=== PATIENT | female | born 1935 | race Caucasian/White ===

== ENCOUNTER 2019-02-10 09:18 | Inpatient (IN) | payer OTHER, MEDICARE ==
[~2019-02-10] VITALS: Ht 162.6 cm; Wt 81.6 kg
--- NOTE | 2019-02-10 09:27 | NUR ---
RECEIVED PT VIA WHEELCHAIR FR HOME. PT AOX2, C/O N/V, ABD DISCOMFORT AND DISTENTION SINCE 02/08/2019. ALSO REPORTS B/L REDNESS TENDERNESS AND DISCOMFORT ON LOWER LEGS SINCE 02/09/2019. +DIARRHEA >10X FOR THE PAST 24HRS, EMESIS 4X THIS MORNING. OUT OF BALANCE AND DIZZINESS THIS MORNING. WILL MONITOR ACCORDINGLY
[2019-02-10] MEDS ORDERED: ESCI10TA PO (09:35)
[2019-02-10] MEDS ORDERED: POTA10TA15 PO (09:35)
[2019-02-10] MEDS ORDERED: ACET-2605 PO (09:35)
[2019-02-10] MEDS ORDERED: CLON0.1T PO (09:35)
[2019-02-10] MEDS ORDERED: SPIR50TA5 PO (09:35)
[2019-02-10] MEDS ORDERED: PROPRANOLOL (09:35)
[2019-02-10] MEDS ORDERED: IV NORMAL SALINE 500 ML BAG IV ONE (10:00)
[2019-02-10] MEDS ORDERED: PIPERACILLIN SODIUM/TAZOBACTAM 3.375 G in IV DEXTROSE 5% 50 ML IV ONE (10:15)
[2019-02-10] MEDS ORDERED: VANCOMYCIN IV 1,000 MG in IV DEXTROSE 5% 250 ML IV ONE (10:15)
--- NOTE | 2019-02-10 10:36 | NUR ---
MD AT BEDSIDE FOR HX AND PHYSICAL. BP AT 80/65MMhG, RETAKEN : 80/49MMHG; NOTIFIED MD, STARTED IV ORDERED L AC WITH G22 COVERED BUTTON MAKER AT BEDSIDE KEPT WARM DRY AND COMFORTABLE.
[2019-02-10 10:37] LABS: BASOPHILS % (AUTO) 0.3 % (0.0-2.0); EOSINOPHILS # (AUTO) 0.2 K/uL (0.0-0.7); HEMATOCRIT 32.9 % (31.2-41.9); HEMOGLOBIN 10.9 g/dL (10.9-14.3); LYMPHOCYTES # (AUTO) 1.3 K/uL (20.0-40.0); LYMPHOCYTES % (AUTO) 12.1 % (20.5-51.5); MEAN CORPUSCULAR HEMOGLOBIN 34.1 uug (24.7-32.8); MEAN CORPUSCULAR HGB CONC 33 g/dL (32.3-35.6); MEAN CORPUSCULAR VOLUME 102.9 fL (75.5-95.3); MONOCYTES # (AUTO) 0.8 K/uL (2.0-10.0); MONOCYTES % (AUTO) 6.9 % (0.0-11.0); NEUTROPHILS # (AUTO) 8.7 K/uL (1.8-8.9); NEUTROPHILS % (AUTO) 78.7 % (38.5-71.5); PLATELET COUNT (AUTO) 136 K/uL (179-408); WHITE BLOOD COUNT (AUTO) 11.1 K/uL (3.8-11.8)
[2019-02-10] MEDS ORDERED: VANCOMYCIN IV 200 ML ONE (10:49)
[2019-02-10] MEDS ORDERED: PIPERACILLIN/TAZOBACTAM/D5W 50 ML IV ONE (10:50)
[2019-02-10] MEDS ORDERED: ONDANSETRON 4 MG/2 ML VIAL ONE (10:59)
[2019-02-10] MEDS ORDERED: ONDANSETRON IV *ER 4 MG/2 ML VIAL IV ONE (11:00)
--- NOTE | 2019-02-10 11:07 | NUR ---
BACK FROM CT VIA ANJEL, ACCOMPANIED BY LUCAS. IVF INTACT AND INFUSING WELL V/S REASSESSED. MONITORED ACCORDINGLY. +NAUSEA AND CLEAR EMESIS. ABLE TO TOLERATE ANTIEMETIC PER IV. PLACED ON HIGH VELEZ'S POSITION FOR COMFORT. ASP PREC, SAFETY PREC APPLIED. REASSURED, KEPT WARM DRY AND COMFORTABLE.
[2019-02-10 11:22] LABS: CARBON DIOXIDE 21 mmol/L (21-32); CHLORIDE 108 mmol/L (98-107); CREATININE 1.1 mg/dL (0.6-1.3); GLUCOSE 86 mg/dL (74-106); POTASSIUM 3.5 mmol/L (3.5-5.1); UREA NITROGEN, BLOOD 16 mg/dL (7-18)
[2019-02-10 11:36] LABS: ALANINE AMINOTRANSFERASE 29 U/L (14-59); ALKALINE PHOSPHATASE 160 U/L (50-136); ASPARTATE AMINOTRANSFERASE 51 U/L (15-37); BILIRUBIN,DIRECT 2.7 mg/dL (0.0-0.2); BILIRUBIN,TOTAL 5.5 mg/dL (0.2-1.0); LIPASE 74 U/L (73-393); TOTAL PROTEIN, SERUM 6.2 g/dL (6.4-8.2)
[2019-02-10] MEDS ORDERED: METOCLOPRAMIDE HCL 10 MG/2 ML VIAL ONE (12:42)
[2019-02-10] MEDS ORDERED: IV NORMAL SALINE 500 ML IV ONE (12:45)
[2019-02-10] MEDS ORDERED: METOCLOPRAMIDE HCL 10 MG/2 ML VIAL IV ONE (12:45)
--- NOTE | 2019-02-10 13:26 | NUR ---
PT L AC IV SITE SHIFTED TO R DORSAL HAND. HAND OFF GIVEN TO SARAH GARLAND FOR TELE ADMISSION UNDER DR. MOY
--- NOTE | 2019-02-10 13:58 | NUR ---
PT FOR TRANSFER TO TELE ADMISSION VIA BED, ACCOMPANIED BY ANY ELIZALDE. ALL BELONGINGS WITH PATIENT.
--- NOTE | 2019-02-10 14:00 | NUR ---
RECEIVED PATIENT FROM HOME VIA ER, ACCOMPANIED BY FAMILY W/ CC OF N/V SINCE 02/08/19 AND ABDOMINAL PAIN AND CELLULITIS OF BLE. AWAKE, A&OX3, MALTESE SPEAKING. ADMISSION ASSESSMENT INITIATED, SEEN BY DR. MOY W/ ORDERS
[2019-02-10 14:11] VITALS: BP 110/61
[2019-02-10] MEDS ORDERED: ONDANSETRON 4 MG/2 ML VIAL IV PRN (14:45)
[2019-02-10] MEDS ORDERED: MORPHINE SULFATE 2 MG/1 ML DISP.SYRIN IV PRN (14:45)
[2019-02-10] MEDS ORDERED: MAGNESIUM HYDROXIDE 30 ML LIQUID UDC PO PRN (14:45)
[2019-02-10] MEDS ORDERED: Z GUARD REMEDY PASTE 57 GM TUBE TOP PRN (14:45)
[2019-02-10] MEDS ORDERED: ZOLPIDEM 5 MG TABLET PO PRN (14:45)
--- NOTE | 2019-02-10 15:00 | NUR ---
HEMODIALYSIS STARTED Addendum: 02/10/19 at 1609 by ADITYA REAVES RN WRONG ENTRY
[2019-02-10 15:03] VITALS: BP 102/43
--- NOTE | 2019-02-10 15:58 | NUR ---
pharmacy clinical notes ( vancomycin dosing) S: 83 YO female with DX of BLE cellulitis O: BUN/SCR 16/1.1, WBC 11.1, TEMP 98, DOSING WT 180 LBS A/P: PT received 1 dose of Vanco in ER @ 11:30. Also on Rocephine . Will dose Vanco as 1 gm q24h next dose to start tomorrow @ 1200. This would yeild a peak of 32 and trough of 16. Will monitor renal fxn and levels and adjust the dose as necessary.
--- NOTE | 2019-02-10 16:22 | NUR ---
SEEN BY LOG PEELER DR. MOY W/ ADMISSION ORDERS AND TO BE FOLLOWED UP BY DR. BRYANT (GI) AND DR. EPPERSON (CARDIO)
[2019-02-10] MEDS: CEFTRIAXONE 2 G in IV DEXTROSE 5% 100 ML IV SCH (17:16)
--- NOTE | 2019-02-10 19:45 | NUR ---
Received patient awake in bed, alert and oriented x4, ambulatory. Not in any form of distress. Caregiver present at bedside. Note patient has been having diarrhea since admission, stool sample was already sent to lab, will follow up result. Patient instructed to remain on clear liquid intake. Still need to collect urine sample, patient instructed to call nurse if she feels the urge to urinate. Bed in low position, locked, side rails up for safety. will continue to monitor.
[2019-02-10 20:00] VITALS: BP 97/45
[2019-02-11] VITALS (11 sets, daily range): BP systolic 94–127; BP diastolic 43–72
[2019-02-11 00:01] LABS: *BLOOD, URINE 2+ (NEGATIVE); *CLARITY,URINE SLIGHTLY CLOUDY (CLEAR); *COLOR,URINE DARK YELLOW (YELLOW); *KETONES,URINE NEGATIVE (NEGATIVE); *UROBILINOGEN,URINE 0.2 E.U./dl (NORMAL); LEUKOCYTE ESTERASE ,URINE TRACE (NEGATIVE); NITRITE, URINE NEGATIVE (NEGATIVE); UGLUCOSE NEGATIVE (NEGATIVE)
[2019-02-11 00:03] LABS: *BILIRUBIN,URIN 2+ (NEGATIVE)
[2019-02-11 00:35] LABS: BACTERIA,URINE FEW /HPF (NONE SEEN)
[2019-02-11 00:36] LABS: SQUAMOUS EPITHELIAL CELL,UR MANY /HPF (NONE SEEN); URINE AMORPHOUS URATE FEW /HPF
--- NOTE | 2019-02-11 05:51 | NUR ---
Patient slept well throughout the night, no complaints were made. No recurrence of watery stool after midnight, noted need to collect stool sample for further testing will endorse to next shift nurse. Observed contact isolation in relation to possible cdiff infection. Maintain patient on clear liquid diet as ordered. Attended all needs. Ensured safety and comfort.
[2019-02-11 06:41] LABS: BASOPHILS # (AUTO) 0.1 K/uL (0.0-8.0); BASOPHILS % (AUTO) 0.8 % (0.0-2.0); EOSINOPHILS # (AUTO) 0.3 K/uL (0.0-0.7); EOSINOPHILS % (AUTO) 3.9 % (0.0-7.0); HEMATOCRIT 24.7 % (31.2-41.9); HEMOGLOBIN 8.4 g/dL (10.9-14.3); LYMPHOCYTES # (AUTO) 1.2 K/uL (20.0-40.0); LYMPHOCYTES % (AUTO) 15.9 % (20.5-51.5); MEAN CORPUSCULAR HEMOGLOBIN 34.9 uug (24.7-32.8); MEAN CORPUSCULAR HGB CONC 34 g/dL (32.3-35.6); MEAN CORPUSCULAR VOLUME 102.9 fL (75.5-95.3); MONOCYTES # (AUTO) 0.6 K/uL (2.0-10.0); MONOCYTES % (AUTO) 8.9 % (0.0-11.0); NEUTROPHILS # (AUTO) 5.1 K/uL (1.8-8.9); NEUTROPHILS % (AUTO) 70.5 % (38.5-71.5); PLATELET COUNT (AUTO) 75 K/uL (179-408); WHITE BLOOD COUNT (AUTO) 7.3 K/uL (3.8-11.8)
[2019-02-11 06:53] LABS: ALANINE AMINOTRANSFERASE 24 U/L (14-59); ALKALINE PHOSPHATASE 128 U/L (50-136); ASPARTATE AMINOTRANSFERASE 36 U/L (15-37); BILIRUBIN,TOTAL 3.9 mg/dL (0.2-1.0); CARBON DIOXIDE 25 mmol/L (21-32); CHLORIDE 109 mmol/L (98-107); CHOLESTEROL 58 mg/dL (<200); CREATININE 1.2 mg/dL (0.6-1.3); GLUCOSE 101 mg/dL (74-106); HDL CHOLESTEROL 17 mg/dL (40-60); MAGNESIUM 1.8 mg/dL (1.8-2.4); PHOSPHOROUS 3.1 mg/dL (2.5-4.9); POTASSIUM 3.1 mmol/L (3.5-5.1); TOTAL PROTEIN, SERUM 5.1 g/dL (6.4-8.2); TRIGLYCERIDES 44 MG/DL (30-150); UREA NITROGEN, BLOOD 16 mg/dL (7-18)
[2019-02-11 07:45] LABS: EOSINOPHILS % (MANUAL) 2 % (0-8); LYMPHOCYTES % (MANUAL) 7 % (20-40); MONOCYTES % (MANUAL) 4 % (2-10); NEUTROPHILS % (MANUAL) 87 % (42-75)
--- NOTE | 2019-02-11 08:02 | NUR ---
Patient comfortable in bed with no signs of distress. Patient call light with in reach; all safety measures in place
[2019-02-11] MEDS: ESCITALOPRAM OXALATE 10 MG TABLET PO SCH (08:53)
[2019-02-11] MEDS: SPIRONOLACTONE 50 MG TABLET PO SCH (08:54)
[2019-02-11 10:12] LABS: *OCCULT BLOOD STOOL POSITIVE (NEGATIVE)
--- NOTE | 2019-02-11 10:30 | NUR ---
SEEN BY DR Candice MOY EXAMINED PATIENT AND NOTED AM LABS WITH ORDER. SEE NOTES
--- NOTE | 2019-02-11 11:00 | NUR ---
VERIFIED WITH DR Luis MOY REGARDING PLATELET AND PRBC AND SAID TO TRANSFUSE 1 UNIT PLATELET AND 1 UNIT PRBC. CONSENT SIGNED
[2019-02-11] MEDS ORDERED: VANCOMYCIN IV 200 ML IV SCH (12:00)
[2019-02-11] MEDS ORDERED: POTASSIUM CHLORIDE 20 MEQ TAB.PRT.SR PO ONE (13:15)
--- NOTE | 2019-02-11 13:35 | NUR ---
pharmacy clinical notes ( vancomycin dosing) S: 83 YO female with DX of BLE cellulitis O: BUN/SCR 16/1.2, WBC 7.3, TEMP 98.1, DOSING WT 180 LBS A/P: Will continue with Vanco 1 gm q24h for estimated peak of 32 and trough of 16. 2nd dose due today at 1200. Will order trough before 4th scheduled dose (not ordered yet). Will monitor renal fxn and levels and adjust the dose as necessary.
--- NOTE | 2019-02-11 13:39 | NUR ---
Blood transfusion started; patient closely observed.
--- NOTE | 2019-02-11 14:00 | NUR ---
NO SS OF BLOOD TRANSFUSION REACTION NOTED, CONTINUE WITH TX
--- NOTE | 2019-02-11 14:39 | NUR ---
SEEN BY GI WILL CONTINUE TO FOLLOW-UP PATIENT, SEE NOTES
[2019-02-11] MEDS ORDERED: LOPERAMIDE HCL 1 MG/5 ML UDC PO PRN (15:30)
[2019-02-11] MEDS: LOPERAMIDE HCL 2 MG CAPSULE PO PRN (16:02)
--- NOTE | 2019-02-11 17:03 | NUR ---
1 UNIT PRBC COMPLETED WITHOUT REACTION.
[2019-02-11] MEDS: CEFTRIAXONE 2 G in IV DEXTROSE 5% 100 ML IV SCH (17:06)
--- NOTE | 2019-02-11 18:42 | NUR ---
1 unit of platelets started and patient closely observed.
--- NOTE | 2019-02-11 19:06 | NUR ---
No reaction from platelets transfusion, continue with treatment.
--- NOTE | 2019-02-11 20:00 | NUR ---
received pt with ongoing plate transfusion; concluded at this time with VS stable and afebrile; see downtime form for this platelet infusion.
[2019-02-12] VITALS: BP 129/48
[2019-02-12 04:00] VITALS: BP 107/51
[2019-02-12 06:52] LABS: ALANINE AMINOTRANSFERASE 28 U/L (14-59); ALKALINE PHOSPHATASE 146 U/L (50-136); ASPARTATE AMINOTRANSFERASE 39 U/L (15-37); BILIRUBIN,TOTAL 4.5 mg/dL (0.2-1.0); CARBON DIOXIDE 23 mmol/L (21-32); CHLORIDE 108 mmol/L (98-107); CREATININE 1.3 mg/dL (0.6-1.3); GLUCOSE 83 mg/dL (74-106); MAGNESIUM 1.7 mg/dL (1.8-2.4); PHOSPHOROUS 3.2 mg/dL (2.5-4.9); POTASSIUM 3.4 mmol/L (3.5-5.1); TOTAL PROTEIN, SERUM 5.9 g/dL (6.4-8.2); UREA NITROGEN, BLOOD 14 mg/dL (7-18)
[2019-02-12 07:03] LABS: BASOPHILS # (AUTO) 0.1 K/uL (0.0-8.0)
[2019-02-12 07:20] LABS: BASOPHILS % (AUTO) 0.8 % (0.0-2.0); EOSINOPHILS # (AUTO) 0.4 K/uL (0.0-0.7); EOSINOPHILS % (AUTO) 4.6 % (0.0-7.0); LYMPHOCYTES # (AUTO) 1.5 K/uL (20.0-40.0); LYMPHOCYTES % (AUTO) 15.9 % (20.5-51.5); MEAN CORPUSCULAR HEMOGLOBIN 33.8 uug (24.7-32.8); MEAN CORPUSCULAR HGB CONC 34 g/dL (32.3-35.6); MEAN CORPUSCULAR VOLUME 99.3 fL (75.5-95.3); MONOCYTES # (AUTO) 0.8 K/uL (2.0-10.0); MONOCYTES % (AUTO) 8.6 % (0.0-11.0); NEUTROPHILS # (AUTO) 6.5 K/uL (1.8-8.9); NEUTROPHILS % (AUTO) 70.1 % (38.5-71.5); RED BLOOD CELL COUNT(AUTO) 3.23 MIL/uL (3.63-4.92)
[2019-02-12 07:22] LABS: WHITE BLOOD COUNT (AUTO) 9.2 K/uL (3.8-11.8)
[2019-02-12 07:23] LABS: HEMOGLOBIN 10.9 g/dL (10.9-14.3); PLATELET COUNT (AUTO) 102 K/uL (179-408)
--- NOTE | 2019-02-12 07:26 | NUR ---
Patient rested well in between care; no acute distress; family at bedside; needs attended.
[2019-02-12] MEDS: SPIRONOLACTONE 50 MG TABLET PO SCH (08:06)
[2019-02-12] MEDS: ESCITALOPRAM OXALATE 10 MG TABLET PO SCH (08:06)
[2019-02-12 11:31] VITALS: BP 117/63
[2019-02-12] MEDS: ALBUMIN HUMAN 25% 25 GM in PREMIXED 1 EACH IV PRN ×2 (13:42→16:56)
--- NOTE | 2019-02-12 13:56 | NUR ---
pharmacy clinical notes ( vancomycin dosing) S: 83 YO female with DX of BLE cellulitis O: BUN/SCR 14/1.3 (previously 1.2, 1.1), WBC 9.2, TEMP 98, DOSING WT 180 LBS A/P: As renal function has changed, rescheduled regimen from 1gm q24h to 1gm q30h for new estimated trough of 15.4, second dose today at 1700. Will follow renal function and if continues to decrease, consider dosing per levels instead. Otherwise, will check torugh before 4th scheduled dose (not ordered yet). Will follow
[2019-02-12] MEDS ORDERED: POTASSIUM CHLORIDE 20 MEQ TAB.PRT.SR PO ONE (14:00)
[2019-02-12 15:55] VITALS: BP 113/57
[2019-02-12] MEDS: VANCOMYCIN IV 1 G in PREMIXED 0 EACH IV SCH (16:19)
[2019-02-12] MEDS: CEFTRIAXONE 2 G in IV DEXTROSE 5% 100 ML IV SCH (17:45)
[2019-02-12] MEDS: MAGNESIUM SULFATE/D5W 100 ML IV SCH ×2 (18:38→19:29)
[2019-02-12 20:41] VITALS: BP 131/53
[2019-02-13 00:33] VITALS: BP 108/42
[2019-02-13 05:12] VITALS: BP 105/49
--- NOTE | 2019-02-13 05:13 | NUR ---
Patient rested well in between care; assisted to meet hygiene needs; family at bedside; no acute distress; safety maintained continue to monitor; continue plan of care
[2019-02-13 06:40] LABS: BASOPHILS # (AUTO) 0.1 K/uL (0.0-8.0); BASOPHILS % (AUTO) 1.2 % (0.0-2.0); EOSINOPHILS # (AUTO) 0.3 K/uL (0.0-0.7); EOSINOPHILS % (AUTO) 5.7 % (0.0-7.0); HEMATOCRIT 26.9 % (31.2-41.9); HEMOGLOBIN 9.2 g/dL (10.9-14.3); LYMPHOCYTES % (AUTO) 17.7 % (20.5-51.5); MEAN CORPUSCULAR HEMOGLOBIN 34.3 uug (24.7-32.8); MEAN CORPUSCULAR HGB CONC 34 g/dL (32.3-35.6); MEAN CORPUSCULAR VOLUME 99.8 fL (75.5-95.3); MONOCYTES # (AUTO) 0.6 K/uL (2.0-10.0); MONOCYTES % (AUTO) 11.2 % (0.0-11.0); NEUTROPHILS # (AUTO) 3.7 K/uL (1.8-8.9); NEUTROPHILS % (AUTO) 64.2 % (38.5-71.5); PLATELET COUNT (AUTO) 77 K/uL (179-408); RED BLOOD CELL COUNT(AUTO) 2.69 MIL/uL (3.63-4.92); WHITE BLOOD COUNT (AUTO) 5.7 K/uL (3.8-11.8)
[2019-02-13 06:58] LABS: ALANINE AMINOTRANSFERASE 20 U/L (14-59); ALKALINE PHOSPHATASE 106 U/L (50-136); ASPARTATE AMINOTRANSFERASE 27 U/L (15-37); BILIRUBIN,TOTAL 3.7 mg/dL (0.2-1.0); CARBON DIOXIDE 21 mmol/L (21-32); CHLORIDE 109 mmol/L (98-107); CREATININE 1.2 mg/dL (0.6-1.3); GLUCOSE 88 mg/dL (74-106); PHOSPHOROUS 3.4 mg/dL (2.5-4.9); POTASSIUM 3.3 mmol/L (3.5-5.1); TOTAL PROTEIN, SERUM 5.2 g/dL (6.4-8.2); UREA NITROGEN, BLOOD 12 mg/dL (7-18)
--- NOTE | 2019-02-13 08:00 | NUR ---
abdomen obese, prn leaking from paracentesis site. gauge applied for comfort
--- NOTE | 2019-02-13 08:00 | NUR ---
RECEIVED PATIENT ON BED, AWAKE, DENIES DISCOMFORT. DAUGHTER AT BEDSIDE, SUPPORTIVE OF PATIENT CARE.
[2019-02-13] MEDS: SPIRONOLACTONE 50 MG TABLET PO SCH (08:44)
[2019-02-13] MEDS: ESCITALOPRAM OXALATE 10 MG TABLET PO SCH (08:44)
[2019-02-13] MEDS: POTASSIUM CHLORIDE 50 ML IV SCH ×4 (09:41→14:07)
--- NOTE | 2019-02-13 09:45 | NUR ---
MED FOR K SUPPLEMENT. DAUGHTER AND PATIETN AWARE IVPB X 4 ORDERED. VERBALIZED UNDERSTANDING.
--- NOTE | 2019-02-13 10:45 | NUR ---
DAUGHTER CEM LEFT FOR NOW. WILL VISIT LATER.
[2019-02-13 11:02] VITALS: BP 106/50
--- NOTE | 2019-02-13 14:30 | NUR ---
Pharmacy clinical notes ( vancomycin dosing) S: 83 YO female with DX of BLE cellulitis O: BUN/SCR 12/1.2, WBC 5.7, TEMP 98.4 DOSING WT 180 LBS A/P: Will continue 1gm q30h for new estimated trough of 15.4, third dose tonight at 2300. Will follow renal function and if continues to decrease, consider dosing per levels instead. Otherwise, will check through before 4th scheduled dose (not ordered yet). Will follow.
--- NOTE | 2019-02-13 14:38 | NUR ---
seen by dr Bartlett, made order and carried out
[2019-02-13 15:30] VITALS: BP 103/53
[2019-02-13] MEDS: CEFTRIAXONE 2 G in IV DEXTROSE 5% 100 ML IV SCH (17:21)
--- NOTE | 2019-02-13 18:00 | NUR ---
full liquid diet, tolerated well. advanced to soft diet in am
--- NOTE | 2019-02-13 19:45 | NUR ---
PATIENT ALERT SPEAK GIBRALTARIAN, DAUGHTER AT BEDSIDE TO INTERPRET FOR THE PATIENT. NO SOB NO CHEST PAIN, TELE MONITOR SINUS RHYTHM AT THIS TIME. NO COMPLAIN OF PAIN. CONT TO MONITOR.
[2019-02-13 19:58] VITALS: BP 101/60
[2019-02-13] MEDS: VANCOMYCIN IV 1 G in PREMIXED 0 EACH IV SCH (23:48)
[2019-02-14 00:39] VITALS: BP 104/53
[2019-02-14 04:27] VITALS: BP 90/50
--- NOTE | 2019-02-14 06:13 | NUR ---
PATIENT ALERT, NO SOB NO CHEST PAIN, TELE MONITOR SINUS RHYTHM AT THIS TIME. ASSISTED WITH TOILETING. BILATERAL LEGS CELLULITIS STILL HAS REDNESS AND SWELLING NOTED. FAMILY AT BEDSIDE. CONT TO MONITOR.
[2019-02-14 06:56] LABS: BASOPHILS # (AUTO) 0.1 K/uL (0.0-8.0); BASOPHILS % (AUTO) 0.8 % (0.0-2.0); EOSINOPHILS # (AUTO) 0.4 K/uL (0.0-0.7); HEMATOCRIT 30.2 % (31.2-41.9); HEMOGLOBIN 10.3 g/dL (10.9-14.3); LYMPHOCYTES # (AUTO) 1.2 K/uL (20.0-40.0); LYMPHOCYTES % (AUTO) 15.7 % (20.5-51.5); MEAN CORPUSCULAR HEMOGLOBIN 34.1 uug (24.7-32.8); MEAN CORPUSCULAR HGB CONC 34 g/dL (32.3-35.6); MEAN CORPUSCULAR VOLUME 100.2 fL (75.5-95.3); MONOCYTES # (AUTO) 0.9 K/uL (2.0-10.0); NEUTROPHILS # (AUTO) 5.1 K/uL (1.8-8.9); NEUTROPHILS % (AUTO) 66.5 % (38.5-71.5); PLATELET COUNT (AUTO) 98 K/uL (179-408); RED BLOOD CELL COUNT(AUTO) 3.02 MIL/uL (3.63-4.92); WHITE BLOOD COUNT (AUTO) 7.7 K/uL (3.8-11.8)
[2019-02-14 07:08] LABS: ALANINE AMINOTRANSFERASE 24 U/L (14-59); ALKALINE PHOSPHATASE 120 U/L (50-136); ASPARTATE AMINOTRANSFERASE 30 U/L (15-37); BILIRUBIN,TOTAL 3.7 mg/dL (0.2-1.0); CARBON DIOXIDE 22 mmol/L (21-32); CHLORIDE 109 mmol/L (98-107); CREATININE 1.2 mg/dL (0.6-1.3); GLUCOSE 97 mg/dL (74-106); POTASSIUM 3.8 mmol/L (3.5-5.1); TOTAL PROTEIN, SERUM 5.7 g/dL (6.4-8.2); UREA NITROGEN, BLOOD 11 mg/dL (7-18)
--- NOTE | 2019-02-14 07:25 | NUR ---
RECEIVED PATIENT IN BED ON ROOM AIR WITH NO SHORTNESS OF BREATH NO S/S OF PAIN OR DISCOMFORTS AT THIS TIME LANGUAGE BARRIER SPEAKS MOSTLY KENYAN ASSIGNED BACK STAYER ALSO SPEAKS KENYAN ALL NEEDS ANTICIPATED AND SATISFIED MADE COMFORTABLE WILL CONTINUE TO OBSERVE.
[2019-02-14 08:02] LABS: EOSINOPHILS % (MANUAL) 6 % (0-8); LYMPHOCYTES % (MANUAL) 5 % (20-40); MONOCYTES % (MANUAL) 8 % (2-10); NEUTROPHILS % (MANUAL) 81 % (42-75)
[2019-02-14] MEDS: SPIRONOLACTONE 50 MG TABLET PO SCH (08:23)
[2019-02-14] MEDS: ESCITALOPRAM OXALATE 10 MG TABLET PO SCH (08:23)
--- NOTE | 2019-02-14 10:17 | NUR ---
Pharmacy clinical notes ( vancomycin dosing) S: To continue vanco dosing for this 83 YO female patient for BLE cellulitis O: BUN/SCR 11.2, WBC 7.7, TEMP 98.5 wt 81.6 kg ht 162 cm A/P: Will continue 1gm q30h for today. Will check through before 4th scheduled dose (ordered for 02/15 at 0430am- RN has been informed to hold 0500 am dose if vanco trough level is above 20 mcg/ml). Pharmacy shall review the level in am & adjust the dose if needed. Will follow.
[2019-02-14] MEDS: LOPERAMIDE HCL 2 MG CAPSULE PO PRN (10:18)
--- NOTE | 2019-02-14 10:18 | NUR ---
NOTED PATIENT HAD DIARRHEA LARGE AMOUNTS ALL OVER THE FLOOR BED AND DIAPER MEDICATED WITH IMMODIUM ORDERED CLEANSED ASSISTED BACK INTO THE BED AND MADE COMFORTABLE.
[2019-02-14 11:30] VITALS: BP 106/67
[2019-02-14 15:39] VITALS: BP 107/63
[2019-02-14] MEDS: CEFTRIAXONE 2 G in IV DEXTROSE 5% 100 ML IV SCH (17:03)
--- NOTE | 2019-02-14 17:57 | NUR ---
PATIENT SEEN AND EXAMINED BY JOSEPH HOLCOMB WITH NEW ORDERS AND NOTED.NO FUTHER EPISODES OF DIARRHEA
[2019-02-14 19:58] VITALS: BP 113/55
[2019-02-14] MEDS: FAMOTIDINE 20 MG TABLET PO SCH (20:00)
--- NOTE | 2019-02-14 20:15 | NUR ---
Received pt resting in bed. No acute distress noted. Togolese speaking. Family at bedside. No diarrhea noted at this time. Safety measures maintained. Call light and personal belongings within reach. Will continue to monitor.
[2019-02-15 00:54] VITALS: BP 107/52
[2019-02-15 04:41] VITALS: BP 97/54
[2019-02-15 05:00] LABS: CARBON DIOXIDE 24 mmol/L (21-32); CHLORIDE 109 mmol/L (98-107); CREATININE 1.2 mg/dL (0.6-1.3); GLUCOSE 86 mg/dL (74-106); MAGNESIUM 1.8 mg/dL (1.8-2.4); UREA NITROGEN, BLOOD 11 mg/dL (7-18)
[2019-02-15] MEDS: VANCOMYCIN IV 1 G in PREMIXED 0 EACH IV SCH (05:32)
[2019-02-15 05:53] LABS: BASOPHILS # (AUTO) 0.1 K/uL (0.0-8.0); BASOPHILS % (AUTO) 1.1 % (0.0-2.0); EOSINOPHILS # (AUTO) 0.4 K/uL (0.0-0.7); EOSINOPHILS % (AUTO) 6.2 % (0.0-7.0); HEMATOCRIT 29.2 % (31.2-41.9); LYMPHOCYTES # (AUTO) 0.7 K/uL (20.0-40.0); LYMPHOCYTES % (AUTO) 12.4 % (20.5-51.5); MEAN CORPUSCULAR HEMOGLOBIN 34.3 uug (24.7-32.8); MEAN CORPUSCULAR HGB CONC 34 g/dL (32.3-35.6); MEAN CORPUSCULAR VOLUME 100.4 fL (75.5-95.3); MONOCYTES # (AUTO) 0.7 K/uL (2.0-10.0); MONOCYTES % (AUTO) 11.7 % (0.0-11.0); NEUTROPHILS # (AUTO) 3.9 K/uL (1.8-8.9); NEUTROPHILS % (AUTO) 68.6 % (38.5-71.5); WHITE BLOOD COUNT (AUTO) 5.7 K/uL (3.8-11.8)
[2019-02-15 06:22] LABS: EOSINOPHILS % (MANUAL) 3 % (0-8); LYMPHOCYTES % (MANUAL) 10 % (20-40); MONOCYTES % (MANUAL) 10 % (2-10); NEUTROPHILS % (MANUAL) 77 % (42-75)
[2019-02-15 06:24] LABS: PLATELET COUNT (AUTO) 81 K/uL (179-408)
--- NOTE | 2019-02-15 07:19 | NUR ---
RECEIVED PATIENT AWAKE ALERT AND AWARE WITH LANGUGE BARRIER BUT HAS A FAMILY MEMBER IN THE ROOM ASSISITING WITH TRANSLATING HER NEEDS DENIES PAIN OR DISCOMFORTS PATIENT INSTRUCTED TO ATTEMPT TO ELEVATED BOTH LEGS WHEN EVER POSSIBLE TO DECREASE SWELLING REDNESS STILL EVIDENT MADE COMFORTABLE WILL CONTINUE TO OBSERVE.
[2019-02-15] MEDS: FAMOTIDINE 20 MG TABLET PO SCH (08:46)
[2019-02-15] MEDS: ESCITALOPRAM OXALATE 10 MG TABLET PO SCH (08:46)
[2019-02-15] MEDS: SPIRONOLACTONE 50 MG TABLET PO SCH (08:47)
[2019-02-15] MEDS ORDERED: FUROSEMIDE 20 MG TABLET PO SCH (09:00)
--- NOTE | 2019-02-15 10:07 | NUR ---
Pharmacy clinical notes ( vancomycin dosing) S: To continue vanco dosing for this 83 YO female patient for BLE cellulitis O: BUN/SCR 11.2, WBC 5.7, TEMP 97.7 Vanco trough level: 15 (on 02/15 at 0430) wt 81.6 kg ht 162 cm A/P: Since vanco trough level is 15 mcg/ml,will continue same dose of vanco 1gm IVPB q30h. Will monitor renal function & adjust the dose if needed. Will follow.
[2019-02-15 11:28] VITALS: BP 97/53
[2019-02-15] MEDS ORDERED: OMEP20TA20 PO (11:38)
[2019-02-15] MEDS ORDERED: FURO20TA4 PO (11:38)
[2019-02-15] MEDS ORDERED: LOPE2CAP40 PO (11:38)
[2019-02-15] MEDS ORDERED: CLIN300C11 PO (11:38)
--- NOTE | 2019-02-15 13:11 | NUR ---
PATIENT IS FOR DISCHARGE TODAY CALLED [facility]ILPA PATIENTS DAUGHTER TO INFORM HER RE NAIL SPECIALIST LEFT A MESSAGE AWAITING FOR RETURN CALL.
--- NOTE | 2019-02-15 15:00 | NUR ---
PATIENT DISCHARGED PICKED UP BY HER GRAND DAUGHTER SAAD IN SATISFACTORY CONDITION WITH DISCHARGE INSTRUCTIONS AND PRESCRIPTIONS AND SAAD INSTRUCTED TO CALL ELVA VASQUEZ FOR A FOLLOW UP APPOINTMENT PHONE NUMBER AND INFO PROVIDED HEP LOCK REMOVED AND PATIENT WHEELED DOWN BY W/CHAIR.
== END 2019-02-15 15:00 | disposition home or self-care (01) | DRG 720 ==
LOC: ER 09:18 → TELE3 13:40
PROVIDERS: ADMIT Hospitalist; ATTEND Hospitalist
PROC: 30233N1 Transfusion of Nonautologous Red Blood Cells into Peripheral Vein, Percutaneous Approach (ICD-10-PCS; principal; 2019-02-10)
PROC: 30233R1 Transfusion of Nonautologous Platelets into Peripheral Vein, Percutaneous Approach (ICD-10-PCS; 2019-02-11)
PROC: 0W9G3ZZ Drainage of Peritoneal Cavity, Percutaneous Approach (ICD-10-PCS; 2019-02-12)
DX: A41.9 Sepsis, unspecified organism (principal); L03.115 Cellulitis of right lower limb; E43 Unspecified severe protein-calorie malnutrition; E87.2 Acidosis; D68.4 Acquired coagulation factor deficiency; D69.59 Other secondary thrombocytopenia; I95.9 Hypotension, unspecified; E83.42 Hypomagnesemia; K76.6 Portal hypertension; I08.3 Combined rheumatic disorders of mitral, aortic and tricuspid valves; R65.20 Severe sepsis without septic shock; C22.0 Liver cell carcinoma; K92.2 Gastrointestinal hemorrhage, unspecified; R18.8 Other ascites; K44.9 Diaphragmatic hernia without obstruction or gangrene; K74.60 Unspecified cirrhosis of liver; L03.116 Cellulitis of left lower limb; K80.20 Calculus of gallbladder without cholecystitis without obstruction; Z86.73 Personal history of transient ischemic attack (TIA), and cerebral infarction without residual deficits; Z90.710 Acquired absence of both cervix and uterus; M85.80 Other specified disorders of bone density and structure, unspecified site; E87.6 Hypokalemia; R19.7 Diarrhea, unspecified; I11.9 Hypertensive heart disease without heart failure; J98.11 Atelectasis; I70.0 Atherosclerosis of aorta; R16.1 Splenomegaly, not elsewhere classified; R19.5 Other fecal abnormalities; F32.9 Major depressive disorder, single episode, unspecified; Z79.899 Other long term (current) drug therapy; I49.1 Atrial premature depolarization
CPT/HCPCS: 36415; 70030-TC; 71045; 82105; 83605; 83690; 83735; 84100; 85025; 85730; 86625; 86850; 86900; 86901; 86920; 87040; 87046; 87086; 87177; 89055; 93005; 93307; 97110; 97116; 97530; A4663; G0378; J0696; J2405; J2543; J2765; J3370; J3475; J3480; J7040; J7050; J7060; P9016-BL; P9021; P9035-BL; P9047

== ENCOUNTER 2019-03-24 23:37 | Inpatient (IN) | payer OTHER, MEDICARE ==
[~2019-03-24] VITALS: Ht 167.6 cm; Wt 69.4 kg
[~2019-03-24 23:37] MED LIST: ACET-2605 PO; CLIN300C11 PO; ESCI10TA PO; FURO20TA4 PO; LOPE2CAP40 PO; OMEP20TA20 PO; POTA10TA15 PO; SPIR50TA5 PO
--- NOTE | 2019-03-25 | NUR ---
PATIENT BIB PRIVATE [facility] FROM HOME FOR NAUSE/VOMITING X 2 DAYS. PATIENT IS BULGARIAN SPEAKING ONLY, FAMILY AT [facility].
[2019-03-25 00:22] LABS: BASOPHILS # (AUTO) 0.1 K/uL (0.0-8.0); BASOPHILS % (AUTO) 0.7 % (0.0-2.0); EOSINOPHILS # (AUTO) 0.2 K/uL (0.0-0.7); EOSINOPHILS % (AUTO) 2.2 % (0.0-7.0); HEMATOCRIT 28.9 % (31.2-41.9); HEMOGLOBIN 9.9 g/dL (10.9-14.3); LYMPHOCYTES # (AUTO) 1.3 K/uL (20.0-40.0); LYMPHOCYTES % (AUTO) 14.1 % (20.5-51.5); MEAN CORPUSCULAR HEMOGLOBIN 36.6 uug (24.7-32.8); MEAN CORPUSCULAR HGB CONC 34 g/dL (32.3-35.6); MEAN CORPUSCULAR VOLUME 107.3 fL (75.5-95.3); MONOCYTES # (AUTO) 0.8 K/uL (2.0-10.0); MONOCYTES % (AUTO) 8.7 % (0.0-11.0); NEUTROPHILS % (AUTO) 74.3 % (38.5-71.5); PLATELET COUNT (AUTO) 129 K/uL (179-408); WHITE BLOOD COUNT (AUTO) 9.4 K/uL (3.8-11.8)
[2019-03-25] MEDS ORDERED: PROP10TA10 PO (00:30)
[2019-03-25] MEDS ORDERED: POTA10CA43 PO (00:31)
[2019-03-25 00:40] LABS: CARBON DIOXIDE 21 mmol/L (21-32); CHLORIDE 112 mmol/L (98-107); CREATININE 1.5 mg/dL (0.6-1.3); GLUCOSE 112 mg/dL (74-106); POTASSIUM 5.2 mmol/L (3.5-5.1); UREA NITROGEN, BLOOD 36 mg/dL (7-18)
[2019-03-25 00:44] LABS: THYROID STIMULATING HORMONE 7.582 mIU/mL (0.358-3.740)
[2019-03-25 00:47] LABS: ALANINE AMINOTRANSFERASE 27 U/L (14-59); ALKALINE PHOSPHATASE 129 U/L (50-136); ASPARTATE AMINOTRANSFERASE 36 U/L (15-37); BILIRUBIN,TOTAL 7.6 mg/dL (0.2-1.0); LIPASE 132 U/L (73-393); TOTAL PROTEIN, SERUM 6.5 g/dL (6.4-8.2)
--- NOTE | 2019-03-25 01:20 | NUR ---
DR. PRADO AT BEDSIDE FOR MSE.
[2019-03-25] MEDS ORDERED: ONDANSETRON 4 MG/2 ML VIAL IV ONE (02:00)
[2019-03-25] MEDS ORDERED: ONDANSETRON 4 MG/2 ML VIAL ONE (02:03)
--- NOTE | 2019-03-25 02:07 | NUR ---
Kari THOMAS N.P. REBAR FABRICATOR.
--- NOTE | 2019-03-25 02:10 | NUR ---
ANTONY Loredo SPEAKING WITH DR. PRADO AT THIST TIME.
[2019-03-25] MEDS ORDERED: LACTULOSE 20 G/30 ML LIQUID UDC ONE (02:24)
[2019-03-25] MEDS ORDERED: LACTULOSE 20 G/30 ML LIQUID UDC PO ONE ×3 (02:30→09:00)
--- NOTE | 2019-03-25 02:35 | NUR ---
patient is on the floor, arrived on a gurney, oriented to person only. will begin admission.
--- NOTE | 2019-03-25 02:44 | NUR ---
Pt. admitted to [facility] , under care of Kari HARDY N.P. Belongs List completed
[2019-03-25] MEDS ORDERED: MORPHINE SULFATE 2 MG/1 ML DISP.SYRIN IV PRN (02:45)
[2019-03-25] MEDS ORDERED: ACETAMINOPHEN 325 MG TABLET PO PRN (02:45)
[2019-03-25] MEDS ORDERED: Z GUARD REMEDY PASTE 57 GM TUBE TOP PRN (02:45)
[2019-03-25] MEDS ORDERED: TEMAZEPAM 15 MG CAPSULE PO PRN (02:45)
[2019-03-25] MEDS ORDERED: ALBUTEROL SULFATE 2.5 MG/3 ML NEBU NEB PRN (02:45)
[2019-03-25] MEDS ORDERED: ONDANSETRON 4 MG/2 ML VIAL IV PRN (02:45)
[2019-03-25] MEDS ORDERED: HYDROCODONE/APAP 5-325MG TABLET PO PRN (02:45)
[2019-03-25] MEDS ORDERED: MAGNESIUM HYDROXIDE 30 ML LIQUID UDC PO PRN (02:45)
[2019-03-25] MEDS ORDERED: SODIUM POLYSTYRENE SULFONATE 15 G/60 ML LIQUID UDC PO ONE ×2 (02:45→04:30)
[2019-03-25 03:05] VITALS: BP 108/62
--- NOTE | 2019-03-25 03:43 | NUR ---
Spoke with admitting DOPER Precious, ordered to cancel strict I&O, 40g lactulose, order 20g lactulose for AM. Kayexalate is not available, requested from housed rubber stamps and dies supervisor, rescheduled by the pharmacy for 0430. patient is asleep, daughter is at bedside.
[2019-03-25 04:39] LABS: *BILIRUBIN,URIN 1+ (NEGATIVE); *CLARITY,URINE SLIGHTLY CLOUDY (CLEAR); *COLOR,URINE YELLOW (YELLOW); *KETONES,URINE NEGATIVE (NEGATIVE); LEUKOCYTE ESTERASE ,URINE 1+ (NEGATIVE); NITRITE, URINE NEGATIVE (NEGATIVE); PH,URINE 5.5 (5.0-8.0); UGLUCOSE NEGATIVE (NEGATIVE)
[2019-03-25 04:58] LABS: *BLOOD, URINE TRACE (NEGATIVE)
[2019-03-25 05:03] LABS: BACTERIA,URINE FEW /HPF (NONE SEEN); SQUAMOUS EPITHELIAL CELL,UR MODERATE /HPF (NONE SEEN)
[2019-03-25 05:17] VITALS: BP 102/49
[2019-03-25 06:34] LABS: ALANINE AMINOTRANSFERASE 25 U/L (14-59); ALKALINE PHOSPHATASE 123 U/L (50-136); ASPARTATE AMINOTRANSFERASE 30 U/L (15-37); BILIRUBIN,TOTAL 7.5 mg/dL (0.2-1.0); CARBON DIOXIDE 22 mmol/L (21-32); CHLORIDE 114 mmol/L (98-107); CHOLESTEROL 66 mg/dL (<200); CREATININE 1.6 mg/dL (0.6-1.3); GLUCOSE 113 mg/dL (74-106); HDL CHOLESTEROL 12 mg/dL (40-60); MAGNESIUM 1.9 mg/dL (1.8-2.4); PHOSPHOROUS 3.3 mg/dL (2.5-4.9); POTASSIUM 5.8 mmol/L (3.5-5.1); TRIGLYCERIDES 57 MG/DL (30-150); UREA NITROGEN, BLOOD 39 mg/dL (7-18)
[2019-03-25 06:45] LABS: BASOPHILS # (AUTO) 0.1 K/uL (0.0-8.0); BASOPHILS % (AUTO) 0.6 % (0.0-2.0); EOSINOPHILS # (AUTO) 0.2 K/uL (0.0-0.7); HEMATOCRIT 27.1 % (31.2-41.9); HEMOGLOBIN 9.5 g/dL (10.9-14.3); LYMPHOCYTES # (AUTO) 1.2 K/uL (20.0-40.0); LYMPHOCYTES % (AUTO) 14.4 % (20.5-51.5); MEAN CORPUSCULAR HEMOGLOBIN 37.1 uug (24.7-32.8); MEAN CORPUSCULAR HGB CONC 35 g/dL (32.3-35.6); MEAN CORPUSCULAR VOLUME 105.4 fL (75.5-95.3); MONOCYTES # (AUTO) 0.7 K/uL (2.0-10.0); MONOCYTES % (AUTO) 8.6 % (0.0-11.0); NEUTROPHILS # (AUTO) 6.3 K/uL (1.8-8.9); NEUTROPHILS % (AUTO) 74.4 % (38.5-71.5); PLATELET COUNT (AUTO) 115 K/uL (179-408); RED BLOOD CELL COUNT(AUTO) 2.57 MIL/uL (3.63-4.92); WHITE BLOOD COUNT (AUTO) 8.4 K/uL (3.8-11.8)
[2019-03-25] MEDS ORDERED: PANTOPRAZOLE SODIUM 40 MG TABLET.DR PO SCH (07:00)
--- NOTE | 2019-03-25 07:21 | NUR ---
patient is unable to take her AM Protonix d/t AMS and high risk for aspiration. For safety reasons swallow eval has to be done to see if PO meds are safe to give.
--- NOTE | 2019-03-25 07:35 | NUR ---
RECVEIVED PT RESTING IN BED. NO SOB OR ACUTE DISTRESS NOTED. DAUGHTER AT BEDSIDE. PT ASLEEP. PT ON TELEMETRY MONITORING. SINUS RHYTHM. WILL CONTINUE TO MONITOR. WILL CONTINUE PLAN OF CARE.
[2019-03-25] MEDS: ESCITALOPRAM OXALATE 10 MG TABLET PO SCH (08:54)
[2019-03-25] MEDS: PROPRANOLOL HCL 10 MG TABLET PO SCH ×2 (08:54→17:00)
[2019-03-25] MEDS ORDERED: SPIRONOLACTONE 50 MG TABLET PO SCH (09:00)
[2019-03-25 11:00] VITALS: BP 121/59
--- NOTE | 2019-03-25 12:35 | NUR ---
PT RESTING IN BED. PT ASSISTED WITH REPOSITION EVERY 2 HOURS. DC AC IV 20 HEPLOCK DUE TO DISLODGEMENT CATHETER INTACT. IV HEPLOCK 22 GAUGE LEFT HAND PLACED PATENT AND FLUSHED. PT ABLE TO INGEST PO MEDS WITH APPLE SAUCE. SINUS RHYTHM. WILL CONTINUE TO MONITOR.
--- NOTE | 2019-03-25 13:00 | NUR ---
Spoke to [facility]. Need consent signed, time out sheet, pt,ptt,inr labs for tmrw. will do paracentesis tmrw afternoon.
[2019-03-25] MEDS: LACTULOSE 20 G/30 ML LIQUID UDC PO SCH ×3 (14:47→21:04)
[2019-03-25 15:08] VITALS: BP 110/62
--- NOTE | 2019-03-25 18:00 | NUR ---
PT RESTING COMFORTABLY. NO SOB OR ACUTE DISTRESS NOTED. AWAITING FOR DAUGHTER TO SIGN CONSENT FORM FOR PARACENTESIS ON 03/30/19. PT ON SINUS RHYTHM. [facility]. WILL GIVE REPORT ACCORDINGLY.
[2019-03-25 20:46] VITALS: BP 99/48
--- NOTE | 2019-03-25 21:00 | NUR ---
patient is more alert, communicative and able to cooperate with care. family is at bedside. Consent for paracentesis was signed. IV is patent.
[2019-03-25] MEDS: RIFAXIMIN 550 MG TABLET PO SCH (21:04)
[2019-03-25] MEDS: DOCUSATE SODIUM 100 MG CAPSULE PO SCH (21:04)
[2019-03-26 00:27] VITALS: BP 90/42
[2019-03-26 04:00] VITALS: BP 90/52
[2019-03-26] MEDS: LACTULOSE 20 G/30 ML LIQUID UDC PO SCH ×4 (06:37→21:06)
[2019-03-26 06:48] LABS: BASOPHILS % (AUTO) 0.5 % (0.0-2.0); EOSINOPHILS # (AUTO) 0.2 K/uL (0.0-0.7); EOSINOPHILS % (AUTO) 2.2 % (0.0-7.0); HEMATOCRIT 25.2 % (31.2-41.9); HEMOGLOBIN 8.8 g/dL (10.9-14.3); LYMPHOCYTES # (AUTO) 1.3 K/uL (20.0-40.0); LYMPHOCYTES % (AUTO) 13.8 % (20.5-51.5); MEAN CORPUSCULAR HGB CONC 35 g/dL (32.3-35.6); MONOCYTES # (AUTO) 0.9 K/uL (2.0-10.0); MONOCYTES % (AUTO) 9.7 % (0.0-11.0); NEUTROPHILS # (AUTO) 6.8 K/uL (1.8-8.9); NEUTROPHILS % (AUTO) 73.8 % (38.5-71.5); PLATELET COUNT (AUTO) 108 K/uL (179-408); WHITE BLOOD COUNT (AUTO) 9.2 K/uL (3.8-11.8)
[2019-03-26 06:58] LABS: ALANINE AMINOTRANSFERASE 21 U/L (14-59); ALKALINE PHOSPHATASE 111 U/L (50-136); ASPARTATE AMINOTRANSFERASE 30 U/L (15-37); BILIRUBIN,TOTAL 7.9 mg/dL (0.2-1.0); CARBON DIOXIDE 22 mmol/L (21-32); CHLORIDE 116 mmol/L (98-107); CREATININE 1.6 mg/dL (0.6-1.3); GLUCOSE 93 mg/dL (74-106); MAGNESIUM 1.8 mg/dL (1.8-2.4); PHOSPHOROUS 3.5 mg/dL (2.5-4.9); POTASSIUM 4.9 mmol/L (3.5-5.1); TOTAL PROTEIN, SERUM 5.8 g/dL (6.4-8.2); UREA NITROGEN, BLOOD 36 mg/dL (7-18)
[2019-03-26 07:14] LABS: RED BLOOD CELL COUNT(AUTO) 2.33 MIL/uL (3.63-4.92)
[2019-03-26 07:15] LABS: MEAN CORPUSCULAR VOLUME 108.5 fL (75.5-95.3)
--- NOTE | 2019-03-26 07:25 | NUR ---
RECEIVED PT RESTING IN BED. SIDE RAILS UP X2. BED IN LOWEST POSITION. CALL LIGHT WITHIN REACH. NO SIGNS OF SOB, PAIN OR ACUTE DISTRESS NOTED. CONSENT SIGNED BY FAMILY MEMBER. WILL CONTINUE TO MONITOR. WILL CONTINUE PLAN OF CARE.
[2019-03-26] MEDS: PANTOPRAZOLE ORAL SUSPENSION 40 MG SUSPDR.PKT PO SCH ×2 (07:30→08:42)
[2019-03-26 08:22] VITALS: BP 121/57
[2019-03-26] MEDS: ESCITALOPRAM OXALATE 10 MG TABLET PO SCH (08:58)
[2019-03-26] MEDS: PROPRANOLOL HCL 10 MG TABLET PO SCH ×2 (09:00→17:00)
[2019-03-26] MEDS: RIFAXIMIN 550 MG TABLET PO SCH ×2 (09:05→20:29)
--- NOTE | 2019-03-26 09:52 | NUR ---
ORAL PROTONIX 0730 ADMINISTERED AT 0842
--- NOTE | 2019-03-26 10:06 | NUR ---
LACTULOSE NOT ADMINISTERED AT 0900 DOSE WAS GIVEN AT 0815.
[2019-03-26 11:09] VITALS: BP 111/59
--- NOTE | 2019-03-26 12:00 | NUR ---
PT APPEARS MORE AWARE WITH IMPROVED COGNITION. PT IS MEDICATION COMPLIANT. PT DENIES PAIN AT THIS TIME. NO SIGNS OF SOB OR ACUTE DISTRESS NOTED. PT WILL HAVE PARACENTESIS PROCEDURE AT 1300. WILL CONTINUE TO MONITOR.
[2019-03-26 15:08] VITALS: BP 98/46
--- NOTE | 2019-03-26 18:00 | NUR ---
PT RESTING COMFORTABLY IN BED. PARACENTESIS DONE. NO ADVERSE EFFECTS. NO SOB AR ACUTE DISTRESS NOTED. WILL GIVE REPORTR ACCORDINGLY.
[2019-03-26] MEDS: DOCUSATE SODIUM 100 MG CAPSULE PO SCH (20:29)
[2019-03-26] MEDS ORDERED: LACTULOSE 20 G/30 ML LIQUID UDC PO SCH (21:00)
[2019-03-27 00:17] VITALS: BP 97/55
[2019-03-27 04:28] VITALS: BP 93/51
[2019-03-27 06:16] LABS: BASOPHILS # (AUTO) 0.1 K/uL (0.0-8.0); EOSINOPHILS # (AUTO) 0.2 K/uL (0.0-0.7); EOSINOPHILS % (AUTO) 2.6 % (0.0-7.0); HEMOGLOBIN 8.6 g/dL (10.9-14.3); LYMPHOCYTES # (AUTO) 1.1 K/uL (20.0-40.0); MEAN CORPUSCULAR HEMOGLOBIN 37.4 uug (24.7-32.8); MEAN CORPUSCULAR HGB CONC 34 g/dL (32.3-35.6); MEAN CORPUSCULAR VOLUME 108.7 fL (75.5-95.3); MONOCYTES # (AUTO) 0.9 K/uL (2.0-10.0); MONOCYTES % (AUTO) 9.8 % (0.0-11.0); NEUTROPHILS # (AUTO) 6.4 K/uL (1.8-8.9); NEUTROPHILS % (AUTO) 73.6 % (38.5-71.5); PLATELET COUNT (AUTO) 86 K/uL (179-408); WHITE BLOOD COUNT (AUTO) 8.8 K/uL (3.8-11.8)
[2019-03-27] MEDS: LACTULOSE 20 G/30 ML LIQUID UDC PO SCH ×3 (06:20→21:05)
--- NOTE | 2019-03-27 06:29 | NUR ---
patient slept intermittently. no signs of acute distress. v/s stable. safety and comfort measures provided. all medications prescribed administered. pt. tolerated well. no adverse effects. will endorse care accordingly to morning nurse.
[2019-03-27] MEDS: PANTOPRAZOLE ORAL SUSPENSION 40 MG SUSPDR.PKT PO SCH (06:32)
[2019-03-27 06:38] LABS: ALANINE AMINOTRANSFERASE 21 U/L (14-59); ALKALINE PHOSPHATASE 111 U/L (50-136); ASPARTATE AMINOTRANSFERASE 30 U/L (15-37); BILIRUBIN,TOTAL 5.2 mg/dL (0.2-1.0); CARBON DIOXIDE 22 mmol/L (21-32); CHLORIDE 118 mmol/L (98-107); CREATININE 1.7 mg/dL (0.6-1.3); GLUCOSE 107 mg/dL (74-106); MAGNESIUM 1.8 mg/dL (1.8-2.4); PHOSPHOROUS 2.8 mg/dL (2.5-4.9); POTASSIUM 4.6 mmol/L (3.5-5.1); TOTAL PROTEIN, SERUM 5.5 g/dL (6.4-8.2); UREA NITROGEN, BLOOD 33 mg/dL (7-18)
--- NOTE | 2019-03-27 07:36 | NUR ---
dr. yepez made aware of critical lab value for patient albumin 1.2 no new orders at this time.
[2019-03-27] MEDS ORDERED: PIPERACILLIN SODIUM/TAZOBACTAM 4.5 G in IV DEXTROSE 5% 50 ML IV SCH ×2 (09:00→09:15)
[2019-03-27] MEDS: PROPRANOLOL HCL 10 MG TABLET PO SCH ×2 (09:00→17:00)
--- NOTE | 2019-03-27 09:00 | NUR ---
RECEIVED PATIENT IN BED AWAKE ALERT TO SELF WITH CONFUSSION AND DISORIENTATION ALL NEEDS ANTICIPATED AND SATISFIED.REMAINB ON ROOM AIR WITH NO SHORTNESS OF BREATH AT THIS TIME.S/P PARACENTHESIS WITH NO C/O AT THIS TIME TOLERATING PO ORDERED.DR NIXON HERE AND NOTIFIED THAT THAT PATIENT HAS GRAM NEGATIVE RODS AND NOT ON ATB STATED WILL EVALUATE AND DECIDE.
[2019-03-27] MEDS: RIFAXIMIN 550 MG TABLET PO SCH ×2 (09:15→21:05)
[2019-03-27] MEDS: ESCITALOPRAM OXALATE 10 MG TABLET PO SCH (09:15)
[2019-03-27] MEDS: PIPERACILLIN/TAZOBACTAM/D5W 3.375 G in PREMIXED 1 EACH IV SCH ×2 (10:48→17:21)
--- NOTE | 2019-03-27 11:30 | NUR ---
ATIENT REMAIN ON ATB ORDERED WITH NO ADVERSE OR ALLERGIC REACTIONS AT THIS TIME.
[2019-03-27 11:43] VITALS: BP 101/53
--- NOTE | 2019-03-27 12:23 | NUR ---
PATIENT PULLED OUT IV LEFT HAND REINSERTED TO HER LEFT AC GAUGE 20 WRAPPED WITH KIRLIX AND CONTINUED HER ATB ORDERED.
--- NOTE | 2019-03-27 14:48 | NUR ---
JULIA SAHU HERE TO SEE PATIENT WITH NEW ORDERS AND NOTED
[2019-03-27 16:30] VITALS: BP 104/53
[2019-03-27] MEDS ORDERED: SUCRALFATE 1 G/10 ML LIQUID UDC GT SCH (16:30)
--- NOTE | 2019-03-27 18:00 | NUR ---
CONTINUES TO BE WEAK NEEDS MAX ASSIST FOR ADL FEEDING EXTRA MEDICATIONS ORDERED REMAIN ON ATB ORDERED WITH NO ADVERSE OR ALLERGIC REACTIONS AT THIS TIME MADE COMFORTABLE WILL CONTINUE TO OBSERVE.
--- NOTE | 2019-03-27 19:00 | NUR ---
RECEIVED PATIENT IN BED, NO SOB NO CHEST PAIN, NO COMPLAIN OF PAIN, TELE MONITOR SINUS RHYTHM, PATIENT HAS LARGE BM, STOOL COLLECTED, KEPT CLEAN AND DRY. FAMILY AT BEDSIDES. CONT TO MONITOR.
[2019-03-27 20:03] VITALS: BP 92/46
[2019-03-27 20:52] LABS: *OCCULT BLOOD STOOL NEGATIVE (NEGATIVE)
[2019-03-27] MEDS: DOCUSATE SODIUM 100 MG CAPSULE PO SCH (21:04)
[2019-03-27 23:35] VITALS: BP 94/48
[2019-03-28] MEDS: PIPERACILLIN/TAZOBACTAM/D5W 3.375 G in PREMIXED 1 EACH IV SCH ×3 (01:18→17:19)
[2019-03-28 04:31] VITALS: BP 89/47
[2019-03-28 04:34] VITALS: BP 89/47
--- NOTE | 2019-03-28 06:14 | NUR ---
PATIENT ALERT BUT FORGETFUL, NO FURTHER EPISODE OF VERY SOFT BOWEL MOVEMENT. PATIENT STILL HAVE DISTENDED ABDOMEN, ENCOURAGE PATIENT NOT TO DRINK TOO MUCH FLUIDS. NO SOB NO CHEST PAIN NOTED, TELE MONITOR SINUS RYTHM, CONT TO MONITOR.
[2019-03-28] MEDS: PANTOPRAZOLE ORAL SUSPENSION 40 MG SUSPDR.PKT PO SCH (06:32)
[2019-03-28] MEDS: LACTULOSE 20 G/30 ML LIQUID UDC PO SCH ×3 (06:32→21:04)
--- NOTE | 2019-03-28 07:15 | NUR ---
RECEIVED PATIENT IN BED AWAKE ALERT TO SELF WITH CONFUSSION AND DISORIENTATION AT THIS TIME RTESPONDS YES OR NO IN HUNGARIAN BUT IS UNABLE TO MAKE NEEDS KNOWN ALL NEEDS ANTICIPATED AND SATISFIED.TURNED AND REPOSITIONED Q2H KEPT CLEAN AND DRY BED ALARM IS IN USE WILL CONTINUE TO OBSERVE.
[2019-03-28] MEDS: ESCITALOPRAM OXALATE 10 MG TABLET PO SCH (08:28)
[2019-03-28] MEDS: PROPRANOLOL HCL 10 MG TABLET PO SCH ×2 (09:00→17:00)
[2019-03-28] MEDS: RIFAXIMIN 550 MG TABLET PO SCH ×2 (09:05→21:06)
[2019-03-28 11:37] VITALS: BP 101/52
[2019-03-28 14:19] LABS: BASOPHILS % (AUTO) 0.3 % (0.0-2.0); EOSINOPHILS # (AUTO) 0.2 K/uL (0.0-0.7); EOSINOPHILS % (AUTO) 1.4 % (0.0-7.0); HEMATOCRIT 27.1 % (31.2-41.9); LYMPHOCYTES # (AUTO) 1.2 K/uL (20.0-40.0); LYMPHOCYTES % (AUTO) 8.5 % (20.5-51.5); MEAN CORPUSCULAR HEMOGLOBIN 37.3 uug (24.7-32.8); MEAN CORPUSCULAR HGB CONC 33 g/dL (32.3-35.6); MEAN CORPUSCULAR VOLUME 112.2 fL (75.5-95.3); MONOCYTES # (AUTO) 0.9 K/uL (2.0-10.0); MONOCYTES % (AUTO) 6.1 % (0.0-11.0); NEUTROPHILS # (AUTO) 11.8 K/uL (1.8-8.9); NEUTROPHILS % (AUTO) 83.7 % (38.5-71.5); PLATELET COUNT (AUTO) 78 K/uL (179-408); WHITE BLOOD COUNT (AUTO) 14.1 K/uL (3.8-11.8)
[2019-03-28 14:22] LABS: RED BLOOD CELL COUNT(AUTO) 2.42 MIL/uL (3.63-4.92)
[2019-03-28 14:31] LABS: ALANINE AMINOTRANSFERASE 23 U/L (14-59); ALKALINE PHOSPHATASE 111 U/L (50-136); ASPARTATE AMINOTRANSFERASE 27 U/L (15-37); BILIRUBIN,TOTAL 4.9 mg/dL (0.2-1.0); CARBON DIOXIDE 19 mmol/L (21-32); CHLORIDE 114 mmol/L (98-107); CREATININE 1.7 mg/dL (0.6-1.3); GLUCOSE 199 mg/dL (74-106); MAGNESIUM 1.9 mg/dL (1.8-2.4); PHOSPHOROUS 2.5 mg/dL (2.5-4.9); POTASSIUM 4.3 mmol/L (3.5-5.1); UREA NITROGEN, BLOOD 33 mg/dL (7-18)
[2019-03-28 14:49] LABS: LYMPHOCYTES % (MANUAL) 5 % (20-40); MONOCYTES % (MANUAL) 4 % (2-10); NEUTROPHILS % (MANUAL) 91 % (42-75)
[2019-03-28 16:09] VITALS: BP 105/56
--- NOTE | 2019-03-28 17:30 | NUR ---
PATIENT REMAIN ON ATB ORDERED WITH NO ADVERSE OR ALLERGIC REACTIONS AT THIS TIME APPEITE IS GOOD TODAY MADE COMFORTABLE AND WILL CONTINUE TO OBSERVE.
[2019-03-28 20:10] VITALS: BP 109/55
[2019-03-28] MEDS: DOCUSATE SODIUM 100 MG CAPSULE PO SCH (21:04)
[2019-03-29 00:47] VITALS: BP 96/52
[2019-03-29] MEDS: PIPERACILLIN/TAZOBACTAM/D5W 3.375 G in PREMIXED 1 EACH IV SCH ×2 (01:34→10:01)
[2019-03-29 04:00] VITALS: BP 105/58
--- NOTE | 2019-03-29 05:18 | NUR ---
patient slept intermittently with son at bedside throughout the night. no signs of acute distress. v/s stable. all medication adminsitered and tolerated well. will continue to monitor.
[2019-03-29 05:55] LABS: BASOPHILS # (AUTO) 0.1 K/uL (0.0-8.0); BASOPHILS % (AUTO) 0.6 % (0.0-2.0); EOSINOPHILS # (AUTO) 0.4 K/uL (0.0-0.7); EOSINOPHILS % (AUTO) 3.3 % (0.0-7.0); HEMATOCRIT 23.4 % (31.2-41.9); HEMOGLOBIN 7.9 g/dL (10.9-14.3); LYMPHOCYTES # (AUTO) 1.1 K/uL (20.0-40.0); LYMPHOCYTES % (AUTO) 9.8 % (20.5-51.5); MEAN CORPUSCULAR HEMOGLOBIN 36.9 uug (24.7-32.8); MEAN CORPUSCULAR HGB CONC 34 g/dL (32.3-35.6); MEAN CORPUSCULAR VOLUME 108.7 fL (75.5-95.3); MONOCYTES % (AUTO) 8.6 % (0.0-11.0); NEUTROPHILS # (AUTO) 8.9 K/uL (1.8-8.9); NEUTROPHILS % (AUTO) 77.7 % (38.5-71.5); PLATELET COUNT (AUTO) 70 K/uL (179-408); WHITE BLOOD COUNT (AUTO) 11.4 K/uL (3.8-11.8)
[2019-03-29 06:04] LABS: RED BLOOD CELL COUNT(AUTO) 2.15 MIL/uL (3.63-4.92)
[2019-03-29 06:13] LABS: ALANINE AMINOTRANSFERASE 27 U/L (14-59); ALKALINE PHOSPHATASE 108 U/L (50-136); ASPARTATE AMINOTRANSFERASE 28 U/L (15-37); BILIRUBIN,TOTAL 3.9 mg/dL (0.2-1.0); CARBON DIOXIDE 21 mmol/L (21-32); CHLORIDE 114 mmol/L (98-107); CREATININE 1.7 mg/dL (0.6-1.3); GLUCOSE 95 mg/dL (74-106); MAGNESIUM 1.8 mg/dL (1.8-2.4); PHOSPHOROUS 2.5 mg/dL (2.5-4.9); POTASSIUM 4.3 mmol/L (3.5-5.1); TOTAL PROTEIN, SERUM 5.3 g/dL (6.4-8.2); UREA NITROGEN, BLOOD 34 mg/dL (7-18)
[2019-03-29] MEDS: LACTULOSE 20 G/30 ML LIQUID UDC PO SCH ×2 (06:40→13:47)
[2019-03-29] MEDS: PANTOPRAZOLE ORAL SUSPENSION 40 MG SUSPDR.PKT PO SCH (06:40)
--- NOTE | 2019-03-29 06:46 | NUR ---
critical lab value for albumin 1.[address] Beck Rousseau contacted. no new orders at this time.
--- NOTE | 2019-03-29 07:30 | NUR ---
[id number] PATIENT IN BED ASLEEP SEEMS VERY COMFORTABLE WITH IV ATB INFUSING ORDERED WITH NO S/S OF INFILTERATION AT THIS TIME NO SOB NOT IN DISTRESS WILL CONTINUE TO OBSERVE.
[2019-03-29] MEDS: ESCITALOPRAM OXALATE 10 MG TABLET PO SCH (08:33)
[2019-03-29] MEDS: RIFAXIMIN 550 MG TABLET PO SCH (08:34)
[2019-03-29] MEDS: PROPRANOLOL HCL 10 MG TABLET PO SCH (08:34)
--- NOTE | 2019-03-29 09:07 | NUR ---
AWAKE ALERT WITH CONFUSSION FED SELF WITH FAIR APPETITE ALL NEEDS ANTICIPATED AND SATISFIED TURNED AND REPOSITIONED REMAIN INCONTINENT KEPT CLEAN AND DRY WILL CONTINUE TO OBSERVE.
[2019-03-29 11:23] VITALS: BP 104/53
--- NOTE | 2019-03-29 11:40 | NUR ---
PATIENT SEEN BY DR HARDIN WITH ORDER TO DISCHARGE PATIENT HOME TODAY PATIENTS DAUGHTER AWARE AND STATED THAT PATIENTS GRAND DAUGHTER WILL BE HERE ABOUT 4PM TO TAKE THE PATIENT HOME.
[2019-03-29 15:30] VITALS: BP 108/36
--- NOTE | 2019-03-29 16:30 | NUR ---
PATIENT DISCHARGED PICKED UP BY HER GRAND DAUGHTER SAAD IN SATISFACTORY CONDITION WITH DISCHARGE INSTRUCTIONS AND PRESCRIPTIONS AND PATIENT INSTRUCTED TO CALL FOR A FOLLOW UP APPOINTMENT WITH HER PRIMARY DOCTOR WITHIN THE NEXT ONE TO TWO WEEKS AND SHE EXPRESSED UNDERSTANDING PATIENT TAKEN DOWN BY W/CHAIR.
== END 2019-03-29 16:30 | disposition home health service (06) | DRG 279 ==
LOC: ER 23:39 → TELE3 03-25 02:27
PROVIDERS: ADMIT Nurse Practitioner Acute Care
PROC: 0W9G3ZX Drainage of Peritoneal Cavity, Percutaneous Approach, Diagnostic (ICD-10-PCS; principal; 2019-03-26)
DX: K72.00 Acute and subacute hepatic failure without coma (principal); N17.0 Acute kidney failure with tubular necrosis; E43 Unspecified severe protein-calorie malnutrition; J18.9 Pneumonia, unspecified organism; D69.59 Other secondary thrombocytopenia; D68.4 Acquired coagulation factor deficiency; E87.5 Hyperkalemia; K76.6 Portal hypertension; A04.9 Bacterial intestinal infection, unspecified; N18.4 Chronic kidney disease, stage 4 (severe); R18.8 Other ascites; D53.9 Nutritional anemia, unspecified; I13.10 Hypertensive heart and chronic kidney disease without heart failure, with stage 1 through stage 4 chronic kidney disease, or unspecified chronic kidney disease; Z68.23 Body mass index [BMI] 23.0-23.9, adult; K74.60 Unspecified cirrhosis of liver; N39.0 Urinary tract infection, site not specified; B96.20 Unspecified Escherichia coli [E. coli] as the cause of diseases classified elsewhere; K80.20 Calculus of gallbladder without cholecystitis without obstruction; J98.11 Atelectasis; K21.9 Gastro-esophageal reflux disease without esophagitis; K44.9 Diaphragmatic hernia without obstruction or gangrene; I51.7 Cardiomegaly; Z79.899 Other long term (current) drug therapy; M48.56XA Collapsed vertebra, not elsewhere classified, lumbar region, initial encounter for fracture
CPT/HCPCS: 36415; 70030-TC; 70450; 71045; 83690; 83735; 83986; 84100; 84443; 85025; 85730; 87040; 87070; 87077; 87086; 87205; 93005; A4663; C1758; G0378; J2405; J2543; J7050